=== PATIENT | female | born 1945 | race Two or more races ===

== ENCOUNTER 2019-09-08 12:46 | Observation (INO) | payer SELFPAY ==
--- NOTE | 2019-09-08 13:15 | PDOC ---
History of Present Illness - General Chief Complaint: Chest Pain Stated Complaint: PALPITATION,CHEST PAIN Time Seen by Provider: 09/08/19 12:54 History Source: Patient, Family - History of Present Illness Initial Comments: 09/08/19 13:11 HPI 74 YOF h/o HTN, arthritis presenting with palpitations, chest pain and SOB x 1 day. described as localized to left chest, occasionally radiates to shoulder, nonexertional. has had episodes of chest pain intermittently x several months, worse yesterday. +nonproductive cough, mild congestion - which she attributed to cold sx x 8 days. she also endorses chronic leg/knee pain, worse on LLE, which she has attributed to arthritis. she also noted some hematuria with urination this week , stayed hydrated. 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 and referred to the ED for further evaluation for r/o ACS/typical chest pain. received ASA 325mg x1 RESEARCH TEST ENGINE EVALUATOR she is currently visiting family here from [facility], arrived here about 1 week ago.. Denies fever, chills, chest pain, SOB, palpitation, dizziness, weakness, N, V, D , abdominal pain, bladder and bowel problems, focal weakness/paresthesias, leg swelling/pain, rash. No new changes in medications. Allergies: None Past Medical History/PSH: as above Social history: Lives with family. No tobacco, ETOH or drug use. Meds: as documented in EMR Family history: +father with HTN PMD: in [facility] Review of systems Constitutional: no fevers or chills. No weakness HEENT: +headache or dizziness. +congestion. No visual/hearing disturbances. +neck pain. CVS: +cp or no syncope. Resp: +sob. + cough. Gastrointestinal: no abdominal pain, nausea, vomiting, diarrhea. Genitourinary: no urinary sx, +hematuria. MUSCULOSKELETAL: +joint pain and no joint swelling. +neck pain. SKIN: no redness or skin changes, no discharge, no rash. No wounds. Hematologic: no easy bruising/bleeding. NEUROLOGIC: +headache, dizziness, No LOC or altered mental status. No weakness, numbness or tingling. Psych: no anxiety or depression Allergic/Immunologic: no allergies All other systems reviewed and negative, or as documented in HPI. Physical exam General: Well appearing, awake and alert, NAD. HEENT: NCAT, PERRL, EOMI, clear conjunctiva, anicteric, moist mucus membranes, clear oropharynx, no oral lesions.. Neck: neck supple, FROM, no JVD. Resp: CTAB, normal and even respirations, no respiratory distress CVS: RRR, no murmurs, 2+ peripheral pulses throughout, no peripheral edema Abdomen: soft, NTND, no rebound or guarding. Back: nontender, normal inspection and ROM MSK: no edema, JEAN x4, ROM intact. No clubbing or cyanosis. normal bulk and tone. Extremities: no calf tenderness Neuro: alert, oriented appropriately; no focal neurologic deficits Psych: Calm and cooperative Skin: warm and well perfused, cap refill <2 sec, normal color, no rash or skin discoloration. 09/08/19 13:14 09/08/19 13:30 09/08/19 14:25 Past History - Past Medical History Allergies/Adverse Reactions: Allergies Allergy/AdvReac Type Severity Reaction Status Date / Time No Known Allergies Allergy Verified 09/08/19 12:50 Home Medications: Ambulatory Orders Furosemide [Lasix] 0 mg PO ASDIR 09/08/19 Irbesartan/Hydrochlorothiazide [Avalide 150-12.5 mg Tablet] 0 each PO ASDIR Cardiac Disorders: Yes (palpitations) COPD: No HTN: Yes - Psycho Social/Smoking Cessation Hx Smoking History: Never smoked Hx Alcohol Use: No Drug/Substance Use Hx: No *Physical Exam - Vital Signs Last Vital Signs Temp Pulse Resp BP Pulse Ox 98.2 F 77 19 135/72 98 09/08/19 12:49 09/08/19 12:49 09/08/19 12:49 09/08/19 12:49 09/08/19 12:49 Heart Score/ECG Review - History History: Slightly suspicious - Electrocardiogram EKG: Non specific repolarization disturbance - Age Age: >/= 65 - Risk Factors Risk Factors Heart Score: Yes Hx Hypertension Based on the list above the patient has:: 1-2 risk factors - Troponin Troponin: </= normal limit - Score Heart Score - Total: 4 #1 ECG reviewed & interpreted by me at: 12:55 General ECG Interpretation: Sinus Rhythm, Normal Rate, Normal Intervals Compared to previous ECG there are: Previous ECG unavail 09/08/19 13:12 EKG normal sinus rhythm at 73 bpm, 1st degree HB with MN prolongation >200 ms, narrow QRS, ST and T wave segments and morphology normal. Nonspecific T wave abnormalities ED Treatment Course - LABORATORY CBC & Chemistry Diagram: 09/08/19 13:05 09/08/19 13:05 - ADDITIONAL ORDERS Additional order review: Laboratory Results 09/08/19 09/08/19 09/08/19 13:34 13:05 13:05 PT with INR INR PTT (Actin FS) Sodium Potassium Chloride Carbon Dioxide Anion Gap BUN Creatinine Est GFR (CKD-EPI)AfAm Est GFR (CKD-EPI)NonAf Random Glucose Calcium Magnesium Total Bilirubin AST ALT Alkaline Phosphatase Creatine Kinase 84 Troponin I < 0.03 Total Protein Albumin Urine Color Yellow Urine Appearance Clear Urine pH 5.5 Urine Protein Negative Urine Glucose (UA) Negative Urine Ketones Negative Urine Blood Negative Urine Nitrite Negative Urine Bilirubin Negative Urine Urobilinogen 0.2 Ur Leukocyte Esterase Trace H Urine RBC 0-2 Urine WBC 10-20 Ur Transition Epith Cell Moderate Urine Bacteria Few 09/08/19 09/08/19 13:05 13:05 PT with INR 12.8 INR 1.15 PTT (Actin FS) 26.0 Sodium 140 Potassium 4.1 Chloride 100 Carbon Dioxide 30 Anion Gap 10 BUN 22.0 H Creatinine 0.8 Est GFR (CKD-EPI)AfAm 83.00 Est GFR (CKD-EPI)NonAf 71.61 Random Glucose 124 H Calcium 8.9 Magnesium 1.5 L Total Bilirubin 0.6 AST 20 ALT 11 L Alkaline Phosphatase 70 Creatine Kinase Troponin I Total Protein 7.5 Albumin 3.8 Urine Color Urine Appearance Urine pH Urine Protein Urine Glucose (UA) Urine Ketones Urine Blood Urine Nitrite Urine Bilirubin Urine Urobilinogen Ur Leukocyte Esterase Urine RBC Urine WBC Ur Transition Epith Cell Urine Bacteria 09/08/19 13:05 RBC 3.83 MCV 91.1 MCHC 32.5 RDW 13.2 MPV 11.3 H Neutrophils % 46.0 Lymphocytes % 40.7 H Monocytes % 9.1 Eosinophils % 3.4 Basophils % 0.8 - RADIOLOGY Radiology Studies Ordered: Category Date Time Status CHEST CTA [CT] Stat CT Scan 09/08/19 13:09 Completed CHEST PA & LAT [RAD] Stat Radiology 09/08/19 12:54 Completed - Medications Given in the ED: ED Medications Discontinued Medications Generic Name Dose Route Start Last Admin Trade Name Sukh PRN Reason Stop Dose Admin Ceftriaxone Sodium 1,000 mg/ 50 mls @ 100 mls/hr 09/08/19 14:25 09/08/19 15: 30 Dextrose IVPB 09/08/19 14:54 100 mls/hr ONCE ONE Administration Magnesium Sulfate 2 gm 09/08/19 13:59 09/08/19 14:25 Magnesium Sulfate IVPB 09/08/19 14:00 2 gm ONCE ONE Administration Medical Decision Making - Medical Decision Making 09/08/19 13:13 Vital Signs Temp Pulse Resp BP Pulse Ox 98.2 F 77 19 135/72 98 09/08/19 12:49 09/08/19 12:49 09/08/19 12:49 09/08/19 12:49 09/08/19 12:49 DDx chest pain: ACS, coronary vasospasm, NSTEMI, arrhythmia, unstable angina, PE , dissection, PUD, esophageal spasm, GERD, gastritis, costochondritis, pneumonia , pleurisy, pericarditis/myocarditis. dehydration, electrolyte/metabolic derangements. Chest pain HEART score 4 which denotes Moderate risk and probability for ACS, risk of 14-16% of MACE at 4-6 wks Given risk factors including comorbidities, gender, family and tobacco use. UA +leuk esterase (trace) and WBCs>10, with few bacteria. eleonora with UTI, treat with IV ceftriaxone labs and lytes unremarkable. neg trop, reassuring ASA already received RESEARCH TEST ENGINE EVALUATOR. cxr with cardiomegaly, no effusion/edema or mass/infiltrate CTA neg for central PE per hospitalist, send off dimer and LE duplex given sx and recent travel. Cards cs with lead web application developer physician, Dr Urbina, routine call placed. Plan for admit observation, possible Stress testing, echo, duplex to r/o ischemia, serial trops and EKG/tele monitoring. ASA administered, pain controlled, discussion with patient and family at bedside, made aware of impression and plan, questions answered. admit to Dr Heart, s/o case and plan. 09/08/19 14:04 09/08/19 14:26 09/08/19 14:45 09/08/19 14:45 09/08/19 15:25 Discharge - Discharge Information Problems reviewed: Yes Clinical Impression/Diagnosis: Palpitations, UTI (urinary tract infection) Chest pain Qualifiers: Chest pain type: unspecified Qualified Code(s): R07.9 - Chest pain, unspecified Condition: Stable - Admission Yes - Follow up/Referral - Patient Discharge Instructions - Post Discharge Activity
[2019-09-08 13:22] VITALS: BMI 29.2
[2019-09-08 13:46] LABS: BASO % 0.8 % (0-2.0); EOS % 3.4 % (0-4.5); HEMATOCRIT 34.9 % (32.4-45.2); HEMOGLOBIN 11.3 GM/dl (10.7-15.3); INR 1.15 (0.82-1.09); LYMPH % 40.7 % (8-40); MCH 29.6 pg (25.7-33.7); MCHC 32.5 g/dl (32.0-36.0); MEAN CELL VOLUME 91.1 fl (80-96); MEAN PLT VOLUME 11.3 fl (7.5-11.1); MONO % 9.1 % (3.8-10.2); PLATELET COUNT 176 K/MM3 (134-434); PROTHROMBIN TIME (PATIENT) 12.8 SEC (10.2-13.0); RBC 3.83 M/mm3 (3.60-5.2); RDW 13.2 % (11.6-15.6); WHITE BLOOD COUNT 5.2 K/mm3 (4.0-10.8)
[2019-09-08 13:47] LABS: ALBUMIN 3.8 g/dl (3.4-5.0); BILIRUBIN,TOTAL 0.6 mg/dl (0.2-1); CALCIUM 8.9 mg/dl (8.5-10); CREATININE 0.8 mg/dl (0.55-1.3); MAGNESIUM 1.5 mg/dL (1.8-2.4); POTASSIUM 4.1 mmol/L (3.5-5.1); TOT PROT 7.5 g/dl (6.4-8.2)
[2019-09-08] MEDS ORDERED: MAGNESIUM SULF 50% (8.12 MEQ/2 ML-1 GM VIAL) IVPB ONE (13:59)
[2019-09-08] MEDS ORDERED: MAGNESIUM 1GM/D5W - 2 GM/200 ML IVPB IVPB ONE (14:13)
[2019-09-08 14:23] LABS: EPITHELIAL CELLS MODERATE /hpf
[2019-09-08] MEDS ORDERED: CEFTRIAXONE 1,000 MG in DEXTROSE 5%-WATER - 50 ML IVPB ONE (14:25)
[2019-09-08] MEDS ORDERED: cefTRIAXone SODIUM 1 GM VIAL ONE (14:42)
--- NOTE | 2019-09-08 14:54 | HP ---
Admitting History and Physical - Admission Chief Complaint: chest pain History of Present Illness: 74 Yrs iolD f a visitor from [facility] came 8 days ago today visited Urgent care with chest pain (on going, intermittent, radiating to shoulder, 5/10) , palpitation arthritis presenting with palpitations, and SOB for 1 day , EKG was performed and patient is transferred to Ed for evaluation, considering intermediate p chest pain and SOB x 1 day. described as localized to left chest , occasionally radiates to shoulder, nonexertional. has had episodes of chest pain iHeart score is being admitted for further evaluation of sOB with palpitation and Chest Pain. . History Source: Patient - Past Medical History Cardiovascular: Yes: HTN - Smoking History Smoking history: Never smoked - Alcohol/Substance Use Hx Alcohol Use: No - Social History History of Recent Travel: Yes (8 days ago from [facility]) Home Medications - Allergies Allergies/Adverse Reactions: Allergies Allergy/AdvReac Type Severity Reaction Status Date / Time No Known Allergies Allergy Verified 09/08/19 12:50 - Home Medications Home Medications: Ambulatory Orders Furosemide [Lasix] 0 mg PO ASDIR 09/08/19 Irbesartan/Hydrochlorothiazide [Avalide 150-12.5 mg Tablet] 0 each PO ASDIR Family Medical History Family History: Unremarkable Review of Systems - Review of Systems Constitutional: denies: Chills, Diaphoresis, Fever Eyes: denies: Blind Spots, Blurred Vision, Double Vision HENT: denies: Difficult Swallowing, Ear Discharge, Ear Pain Neck: denies: Decreased ROM, Lumps, Pain on Movement, Stiffness Cardiovascular: reports: Chest Pain, Palpitations. denies: Edema, Shortness of Breath Respiratory: reports: Cough. denies: Exercise Intolerance, Hemoptysis, Orthopnea Gastrointestinal: denies: Abdominal Pain, Bloating, Constipation, Diarrhea Genitourinary: denies: Burning, Discharge, Dysuria Musculoskeletal: reports: Crepitus (Left knee). denies: Back Pain, Decreased ROM Neurological: denies: Change in LOC, Change in Speech, Confusion, Dizziness Endocrine: denies: Excessive Sweating, Flushing, Increased Hunger Hematology/Lymphatic: denies: Easily Bruised, Excessive Bleeding, Swollen Glands Psychiatric: denies: Altered Sleep Pattern Physical Examination Vital Signs: Vital Signs Temperature 98.2 F 09/08/19 12:49 Pulse Rate 77 09/08/19 12:49 Respiratory Rate 19 09/08/19 12:49 Blood Pressure 135/72 09/08/19 12:49 O2 Sat by Pulse Oximetry (%) 98 09/08/19 12:49 Findings/Remarks: Elderly F not in distress HEENT: Mm moist, no anemia NECK; No JVD No Bruit CHEST: mild tenderness minimal basal crepts CVS: s1S2 R ABD: Non tender Bs + EXT: Trace edema DEBATE DIRECTOR: AOX3 non focal Constitutional: Yes: Well Nourished Labs: CBC, BMP 09/08/19 13:05 09/08/19 13:05 Imaging - Results Chest X-ray: Report Reviewed (Cardiomegaly) Cat Scan: Report Reviewed (Chest : No central PE) EKG: Report Reviewed ([address] T chnages QTC 445) Problem List - Problems (1) Chest pain Assessment/Plan: Atypical recent travelling history, EKG unremarkable, ECHO< Trop I -ve admit Tele for Obs, serial Trop I, Lipid, TSH, HBA1c cardiology consult cont ASA will add statin if elevated LDL cont Lasix switch to Losartan 50 mg optimize as needed, CTA is performed in Ed to r/O PE that shows no central PE poor peripheral opacification. Problems reviewed: Yes Code(s): R07.9 - CHEST PAIN, UNSPECIFIED Qualifiers: Chest pain type: unspecified Qualified Code(s): R07.9 - Chest pain, unspecified (2) Palpitations Assessment/Plan: Will observe on tele to r/O arrythmia Code(s): R00.2 - PALPITATIONS (3) UTI (urinary tract infection) Assessment/Plan: + UA TWBC normal afebrile recived Ceftriaxone 1 gm cont same F/U Culture. Code(s): N39.0 - URINARY TRACT INFECTION, SITE NOT SPECIFIED (4) HTN (hypertension) Assessment/Plan: Switch to Losartan 50 mg daily and optimize Code(s): I10 - ESSENTIAL (PRIMARY) HYPERTENSION (5) Hypomagnesemia Assessment/Plan: Repleted F/U Mag level Code(s): E83.42 - HYPOMAGNESEMIA
[2019-09-08 16:36] LABS: CHOLESTEROL 272 mg/dl (50-200); HDL CHOLESTEROL 59 mg/dl (40-60); TRIGLYCERIDES 68 mg/dl (0-150)
[2019-09-08 16:42] LABS: LDL CHOLESTEROL (ONLY SJRH) 199 mg/dL (5-100)
[2019-09-09 08:19] LABS: CALCIUM 8.7 mg/dl (8.5-10); CREATININE 0.8 mg/dl (0.55-1.3); MAGNESIUM 1.8 mg/dL (1.8-2.4); POTASSIUM 3.9 mmol/L (3.5-5.1)
[2019-09-09 08:26] LABS: BASO % 0.4 % (0-2.0); EOS % 4.5 % (0-4.5); HEMOGLOBIN 10.3 GM/dl (10.7-15.3); MCH 30.3 pg (25.7-33.7); MCHC 33.3 g/dl (32.0-36.0); MEAN CELL VOLUME 90.8 fl (80-96); MEAN PLT VOLUME 11.1 fl (7.5-11.1); MONO % 7.6 % (3.8-10.2); NEUT % 46.5 % (42.8-82.8); PLATELET COUNT 166 K/MM3 (134-434); RBC 3.41 M/mm3 (3.60-5.2); WHITE BLOOD COUNT 4.4 K/mm3 (4.0-10.8)
--- NOTE | 2019-09-09 09:58 | PN ---
Progress Note, Physician Chief Complaint: No new complaints History of Present Illness: 4 Yrs iolD f a visitor from [facility] came 8 days ago today visited Urgent care with chest pain (on going, intermittent, radiating to shoulder, 5/10) , palpitation arthritis presenting with palpitations, and SOB for 1 day , EKG was performed and patient is transferred to Ed for evaluation, considering intermediate p chest pain and SOB x 1 day. described as localized to left chest , CTA -ve for central PE, LE Doppler -ve for DVT, elevated D dimmers 3770, BNP normal mild anemia. - Current Medication List Current Medications: Active Medications Aspirin (Asa -) 81 mg PO DAILY BETH Atorvastatin Calcium (Lipitor -) 40 mg PO HS BETH Enoxaparin Sodium (Lovenox -) 40 mg SQ DAILY BETH Furosemide (Lasix -) 20 mg PO DAILY BETH Ceftriaxone Sodium (Ceftriaxone 1 Gm-D5w Bag) 50 mls @ 100 mls/hr IVPB DAILY BETH Losartan Potassium (Cozaar -) 50 mg PO DAILY BETH - Objective Vital Signs: Vital Signs Temperature 98.1 F 09/09/19 06:00 Pulse Rate 88 09/09/19 06:00 Respiratory Rate 18 09/09/19 06:00 Blood Pressure 153/66 09/09/19 06:00 O2 Sat by Pulse Oximetry (%) 94 L 09/09/19 08:43 Elderly F not in distress HEENT: Mm moist, no anemia NECK; No JVD No Bruit CHEST: mild tenderness CTA B/L CVS: s1S2 R ABD: Non tender Bs + EXT: Trace edema HAND SHAPER: AOX3 non focal Labs: CBC, BMP 09/09/19 07:20 09/09/19 07:20 INR, PTT INR 1.15 (0.82-1.09) 09/08/19 13:05 D Dimmers: 3770 - ....Imaging Cat Scan: Report Reviewed (CTA Chest no central PE) Ultrasound: Report Reviewed (LE Doppler -ve for DVt) EKG: Report Reviewed (NSr no acute St t changes) Problem List - Problems (1) Chest pain Assessment/Plan: Atypical recent travelling history, EKG unremarkable, normal serial CE, ECHO pending on ASA for Statin , remained CP free, CTA -ve for central PE , LE Doppler -ve for DVT significantly elevated D Dimmers: 3770 will F/U cardiology input andhematology input.. Code(s): R07.9 - CHEST PAIN, UNSPECIFIED Qualifiers: Chest pain type: unspecified Qualified Code(s): R07.9 - Chest pain, unspecified (2) Palpitations Assessment/Plan: Will observe on tele to shows no arrhythmia Code(s): R00.2 - PALPITATIONS (3) UTI (urinary tract infection) Assessment/Plan: + UA TWBC normal afebrile received Ceftriaxone 1 gm cont same F/U Culture. Code(s): N39.0 - URINARY TRACT INFECTION, SITE NOT SPECIFIED (4) HTN (hypertension) Assessment/Plan: Losartan 50 mg daily and optimize Problems reviewed: Yes Code(s): I10 - ESSENTIAL (PRIMARY) HYPERTENSION (5) Hypomagnesemia Assessment/Plan: Repleted F/U Mag level 1.8 will infuse Mag so4 1 gm IVSS Problems reviewed: Yes Code(s): E83.42 - HYPOMAGNESEMIA (6) Hypercholesteremia Assessment/Plan: start on Lipitor 40 mg daily Problems reviewed: Yes Code(s): E78.00 - PURE HYPERCHOLESTEROLEMIA, UNSPECIFIED (7) Elevated d-dimer Assessment/Plan: Significantly elevated D Dimmers LE Doppler -ve for DVT, CTA chest poor peripheral opacification, LE Doppler -ve for DVt, will consult hematology consult if need to Rpt CT chest or additional w/u . Problems reviewed: Yes Code(s): R79.89 - OTHER SPECIFIED ABNORMAL FINDINGS OF BLOOD CHEMISTRY
[2019-09-09] MEDS: ENOXAPARIN NA (PORCINE) 40 MG/0.4 ML DISP.SYRIN SQ SCH (11:03)
[2019-09-09] MEDS: CEFTRIAXONE 1 G/50 ML PREMIX 50 ML IVPB SCH (11:03)
[2019-09-09] MEDS: LOSARTAN POTASSIUM 50 MG TABLET (FP) PO SCH (11:03)
[2019-09-09] MEDS: ASPIRIN 81 MG CHEWABLE TABLETS PO SCH (11:03)
[2019-09-09] MEDS: FUROSEMIDE 20 MG TABLET (FP) PO SCH (11:03)
--- NOTE | 2019-09-09 12:23 | EKG ---
Test Reason : Blood Pressure : / mmHG Vent. Rate : 073 BPM Atrial Rate : 073 BPM P-R Int : 218 ms QRS Dur : 110 ms QT Int : 404 ms P-R-T Axes : 077 043 049 degrees QTc Int : 445 ms SINUS RHYTHM WITH 1ST DEGREE A-V BLOCK OTHERWISE NORMAL ECG NO PREVIOUS ECGS AVAILABLE Confirmed by BOBBY MARIE, MARY ([id number]) on 09/09/2019 12:23:34 PM Referred By: Confirmed By:MARY ROSALES MD
--- NOTE | 2019-09-09 13:50 | ECHO ---
Name: BETTYE VILLANUEVA ADRIANO ELEVINI Exam:Adult Echocardiogram Study Date: 09/09/2019 11:01 AM Age: 74 yrs Reason For Study: Chest pain Height: 62 in Weight: 161 lb BSA: 1.7 m2 MMode/2D Measurements & Calculations IVSd: 0.93 cm Ao root diam: 2.5 cm LVIDd: 2.8 cm LA dimension: 3.4 cm LVIDs: 3.2 cm LVPWd: 2.8 cm EDV(Teich): 30.4 ml LVOT diam: 2.0 cm ESV(Teich): 40.1 ml Doppler Measurements & Calculations MV E max bindu: 54.6 cm/sec MV A max bindu: 78.0 cm/sec MV dec slope: 444.4 cm/sec2 MV E/A: 0.70 Ao V2 max: 103.4 cm/sec LV V1 max P.6 mmHg Ao max P.3 mmHg LV V1 max: 62.4 cm/sec KIERAN(V,D): 1.9 cm2 MR max bindu: 291.8 cm/sec TR max bindu: 238.8 cm/sec MR max P.1 mmHg TR max P.8 mmHg PA V2 max: 77.2 cm/sec PI end-d bindu: 104.7 cm/sec PA max P.4 mmHg Procedure A complete two-dimensional transthoracic echocardiogram was performed (2D, M-mode, Doppler and color flow Doppler). The study was technically difficult with many images being suboptimal in quality. Left Ventricle The left ventricular size, thickness and function are normal. The left ventricular ejection fraction is normal. Ejection Fraction = 55-60%. No regional wall motion abnormalities noted. Right Ventricle The right ventricle is not well visualized. Atria The left atrial size is normal. Right atrium not well visualized. Mitral Valve There is no mitral regurgitation noted. Tricuspid Valve There is trace tricuspid regurgitation. Right ventricular systolic pressure is normal. Aortic Valve No hemodynamically significant valvular aortic stenosis. No aortic regurgitation is present. Pulmonic Valve The pulmonic valve is not well visualized. Great Vessels The aortic root is normal size. Pericardium/Pleura There is no pericardial effusion. Interpretation Summary The study was technically difficult with many images being suboptimal in quality. The left ventricular size, thickness and function are normal The right ventricle is not well visualized. There is trace tricuspid regurgitation. MD Travis Nagel 09/09/2019 01:49 PM
--- NOTE | 2019-09-09 14:11 | CON.CARD ---
Consult Consult Specialty:: Cardiology Referred by:: Medicine Reason for Consultation:: chest pain - History of Present Illness Chief Complaint: chest pain History of Present Illness: 74F h/o HTN p/w palps, shortness of breath, chest pain. Came to visit from [facility] about 10 days ago, dealing with a lot of family stress. has had pain in her chest intermittently and racing heart since then, BP was also high but don' t remember how high it was so came to ER. Currently no chest pain, palps, dizziness, dyspnea, feeling better. No prior cardiac history, not sure if she had testing before. History taken with motor vehicle parts interpreter via phone. - History Source History Provided By: Patient, Family Member - Past Medical History Cardio/Vascular: Yes: HTN ...: No - Alcohol/Substance Use Hx Alcohol Use: No - Smoking History Smoking history: Former smoker Have you smoked in the past 12 months: No Aproximately how many cigarettes per day: 20 If you are a former smoker, when did you quit?: 200+ - Social History History of Recent Travel: Yes (8 days ago from [facility]) Home Medications - Allergies Allergies/Adverse Reactions: Allergies Allergy/AdvReac Type Severity Reaction Status Date / Time No Known Allergies Allergy Verified 09/08/19 12:50 - Home Medications Home Medications: Ambulatory Orders Furosemide [Lasix] 40 mg PO DAILY 09/08/19 Irbesartan/Hydrochlorothiazide [Avalide 150-12.5 mg Tablet] 150 mg PO DAILY Family Medical History Family History: Unremarkable Review of Systems - Review of Systems Constitutional: reports: No Symptoms Eyes: reports: No Symptoms HENT: reports: No Symptoms Neck: reports: No Symptoms Cardiovascular: reports: Chest Pain, Palpitations, Shortness of Breath Respiratory: reports: No Symptoms Gastrointestinal: reports: No Symptoms Genitourinary: reports: No Symptoms Musculoskeletal: reports: No Symptoms Integumentary: reports: No Symptoms Neurological: reports: No Symptoms Endocrine: reports: No Symptoms Hematology/Lymphatic: reports: No Symptoms Psychiatric: reports: No Symptoms Vital Signs: Vital Signs Temperature 97.6 F 09/09/19 10:04 Pulse Rate 73 09/09/19 10:04 Respiratory Rate 16 09/09/19 10:04 Blood Pressure 116/51 L 09/09/19 10:04 O2 Sat by Pulse Oximetry (%) 94 L 09/09/19 08:43 Constitutional: Yes: No Distress, Calm Eyes: Yes: Conjunctiva Clear, EOM Intact HENT: Yes: Atraumatic, Normocephalic Neck: Yes: Supple, Trachea Midline Respiratory: Yes: Regular, CTA Bilaterally Gastrointestinal: Yes: Normal Bowel Sounds, Soft Cardiovascular: Yes: Regular Rate and Rhythm JVD: No Heart Sounds: Yes: S1, S2 Extremities: No: Cold Edema: No Integumentary: No: Jaundice Neurological: Yes: Alert, Oriented Psychiatric: No: Agitated - Other Data Labs, Other Data: CBC, BMP 09/09/19 07:20 09/09/19 07:20 INR, PTT INR 1.15 (0.82-1.09) 09/08/19 13:05 Troponin, BNP 09/08/19 09/09/19 13:05 07:20 Troponin I < 0.03 B-Natriuretic Peptide 67.4 Troponin, BNP 09/08/19 09/09/19 13:05 07:20 Troponin I < 0.03 B-Natriuretic Peptide 67.4 Assessment/Plan EKG: sinus, first deg AVB, no ischemic changes echo 08/2019: tds, nl LV function, RV not well visualized tele: sinus CTA no large central PE chest pain, palps, dyspnea - echo unremarkable - trop neg x 2, EKG no ischemic changes - unlikely ACS - given risk factors will evaluate with mibi, if benign findings no further inpatient testing HLD - cont statin HTN - cont current meds UTI - manage per primary
--- NOTE | 2019-09-09 16:45 | CONSULT ---
Consult Consult Specialty:: heme Reason for Consultation:: elev d dimer - History of Present Illness Chief Complaint: chest pain History of Present Illness: 74 yof w h/o arthritis, htn arrived from [facility] 8d ago and p/w cp she is a poor historian but describes a subacute L ACW occas pain. denies pleuritic component or sob. She occas awakens w sob of brief duration. intermittent leg swelling. reports having pulm eval in [facility] and told of shadow on lung here cta shows no central PE, there is very mild dec O2 sat at 94, LE duplex neg d dimer sent and elev - History Source History Provided By: Patient, Medical Record Limitations to Obtaining History: Poor Historian (collision estimator used) - Past Medical History Cardio/Vascular: Yes: HTN ...: No - Alcohol/Substance Use Hx Alcohol Use: No - Smoking History Smoking history: Former smoker Have you smoked in the past 12 months: No Aproximately how many cigarettes per day: 20 If you are a former smoker, when did you quit?: 200+ - Social History History of Recent Travel: Yes (8 days ago from [facility]) Home Medications - Allergies Allergies/Adverse Reactions: Allergies Allergy/AdvReac Type Severity Reaction Status Date / Time No Known Allergies Allergy Verified 09/08/19 12:50 - Home Medications Home Medications: Ambulatory Orders Furosemide [Lasix] 40 mg PO DAILY 09/08/19 Irbesartan/Hydrochlorothiazide [Avalide 150-12.5 mg Tablet] 150 mg PO DAILY Physical Exam Vital Signs: Vital Signs Temperature 97.8 F 09/09/19 14:00 Pulse Rate 76 09/09/19 14:00 Respiratory Rate 19 09/09/19 14:00 Blood Pressure 111/52 L 09/09/19 14:00 O2 Sat by Pulse Oximetry (%) 95 09/09/19 14:00 Constitutional: Yes: Well Nourished, No Distress, Other (appears comfortable) Eyes: Yes: WNL Neck: Yes: Supple Cardiovascular: Yes: Regular Rate and Rhythm Respiratory: Yes: CTA Bilaterally Gastrointestinal: Yes: Normal Bowel Sounds, Soft Musculoskeletal: Yes: Other (focal tenderness L superior costochondral region) Extremities: Yes: WNL Edema: Yes (very trace R>l) Psychiatric: Yes: Other (mildly anxious) Labs: CBC, BMP 09/09/19 07:20 09/09/19 07:20 Assessment/Plan reproducible L ACW pain very mild hypoxia, no central PE, elev d dimer of unclear etiol pt/ptt is nl the d dimer is a non-specific finding would repeat. if remains elev or if any other concerning signs of PE would repeat cta in this pt who recently took long flight d/w team
[2019-09-09] MEDS: ATORVASTATIN CA 40 MG TABLET (FP) PO SCH (21:07)
--- NOTE | 2019-09-10 08:05 | PN ---
Physical Exam: SUBJECTIVE: Patient seen and examined at the bedside. no further chest pain, no nausea or vomiting. OBJECTIVE: stress test negative d dimer 1976, down from 3700, however repeat now 3500. initial cta negative for pe, however, d dimer remains elevated. reported by primary RN that patient had an episode of vtach on monitor this evening. continue to monitor on tele. Patient is a 74 yr old female from [facility] came 8 days ago today visited Urgent care with chest pain (on going, intermittent, radiating to shoulder, 5/10) , palpitation arthritis presenting with palpitations, and SOB for 1 day , EKG was performed and patient is transferred to Ed for evaluation. Vital Signs Period Temp Pulse Resp BP Sys/Neff Pulse Ox Last 24 Hr 97.6 F-98.7 F 73-85 16-19 110-122/41-56 94-96 GENERAL: The patient is awake, alert, and fully oriented, in no acute distress. HEAD: Normal with no signs of trauma. EYES: PERRL, extraocular movements intact, sclera anicteric, conjunctiva clear. No ptosis. ENT: Ears normal, nares patent, oropharynx clear without exudates, moist mucous membranes. NECK: Trachea midline, full range of motion, supple. LUNGS: Breath sounds equal, clear to auscultation bilaterally HEART: Regular rate and rhythm ABDOMEN: Soft, nontender, nondistended, normoactive bowel sounds, no guarding, no rebound, no hepatosplenomegaly, no masses. EXTREMITIES: no edema. NEUROLOGICAL: Normal speech, gait not observed. PSYCH: Normal mood, normal affect. SKIN: Warm, dry, normal turgor, no rashes or lesions noted Laboratory Results - last 24 hr 09/09/19 09/09/19 09/09/19 07:10 07:20 07:20 WBC 4.4 RBC 3.41 L Hgb 10.3 L Hct 31.0 L MCV 90.8 MCH 30.3 MCHC 33.3 RDW 13.0 Plt Count 166 MPV 11.1 Absolute Neuts (auto) 2.1 Neutrophils % 46.5 Lymphocytes % 41.0 H Monocytes % 7.6 Eosinophils % 4.5 Basophils % 0.4 D-Dimer Sodium 138 Potassium 3.9 Chloride 99 Carbon Dioxide 30 Anion Gap 9 BUN 17.0 Creatinine 0.8 Est GFR (CKD-EPI)AfAm 83.00 Est GFR (CKD-EPI)NonAf 71.61 Random Glucose 146 H Hemoglobin A1c % Calcium 8.7 Magnesium 1.8 LD Total 115 09/09/19 09/09/19 07:20 12:45 WBC RBC Hgb Hct MCV MCH MCHC RDW Plt Count MPV Absolute Neuts (auto) Neutrophils % Lymphocytes % Monocytes % Eosinophils % Basophils % D-Dimer 1977 H Sodium Potassium Chloride Carbon Dioxide Anion Gap BUN Creatinine Est GFR (CKD-EPI)AfAm Est GFR (CKD-EPI)NonAf Random Glucose Hemoglobin A1c % 7.3 H Calcium Magnesium LD Total Active Medications Generic Name Dose Route Start Last Admin Trade Name Freq PRN Reason Stop Dose Admin Aspirin 81 mg 09/09/19 10:00 09/09/19 11:03 Asa - PO 81 mg DAILY BETH Administration Atorvastatin Calcium 40 mg 09/09/19 22:00 09/09/19 21:07 Lipitor - PO 40 mg HS BETH Administration Enoxaparin Sodium 40 mg 09/09/19 10:00 09/09/19 11:03 Lovenox - SQ 40 mg DAILY BETH Administration Furosemide 20 mg 09/09/19 10:00 09/09/19 11:03 Lasix - PO 20 mg DAILY BETH Administration Ceftriaxone Sodium 50 mls @ 100 mls/hr 09/09/19 10:00 09/09/19 11:03 Ceftriaxone 1 Gm-D5w Bag IVPB 100 mls/hr DAILY BETH Administration Losartan Potassium 50 mg 09/09/19 10:00 09/09/19 11:03 Cozaar - PO 50 mg DAILY BETH Administration ASSESSMENT/PLAN: Problem List - Problems (1) Chest pain Assessment/Plan: chest pain resolved, negative stress test. Code(s): R07.9 - CHEST PAIN, UNSPECIFIED Qualifiers: Chest pain type: unspecified Qualified Code(s): R07.9 - Chest pain, unspecified (2) Elevated d-dimer Assessment/Plan: d dimer repeated and elevated at 3500. patient is asymptomatic, may need repeat CTA to rule out PE. initial chest cta negative. but had recent travel to [facility]. had a run of v tach today per RN. continue to monitor on tele. Code(s): R79.89 - OTHER SPECIFIED ABNORMAL FINDINGS OF BLOOD CHEMISTRY (3) HTN (hypertension) Assessment/Plan: controlled. Code(s): I10 - ESSENTIAL (PRIMARY) HYPERTENSION (4) Hypercholesteremia Assessment/Plan: on lipitor Code(s): E78.00 - PURE HYPERCHOLESTEROLEMIA, UNSPECIFIED (5) Hypomagnesemia Assessment/Plan: daily labs Code(s): E83.42 - HYPOMAGNESEMIA (6) Palpitations Assessment/Plan: on telemonitor. reported to have vtach today, vitals stable. Code(s): R00.2 - PALPITATIONS (7) UTI (urinary tract infection) Assessment/Plan: on ceftriaxone. Code(s): N39.0 - URINARY TRACT INFECTION, SITE NOT SPECIFIED Visit type - Emergency Visit Emergency Visit: Yes ED Registration Date: 09/08/19 Care time: The patient presented to the Emergency Department on the above date and was hospitalized for further evaluation of their emergent condition. - New Patient This patient is new to me today: Yes Date on this admission: 09/10/19 - Critical Care Critical Care patient: No - Discharge Referral Referred to [facility] Med P.C.: No
[2019-09-10] MEDS: CEFTRIAXONE 1 G/50 ML PREMIX 50 ML IVPB SCH (09:00)
[2019-09-10] MEDS: ASPIRIN 81 MG CHEWABLE TABLETS PO SCH (09:00)
[2019-09-10] MEDS ORDERED: REGADENOSON 0.4 MG/5 ML PRE-FILLED SYRINGE IVPUSH ONE ×3 (09:00→12:30)
[2019-09-10] MEDS: ENOXAPARIN NA (PORCINE) 40 MG/0.4 ML DISP.SYRIN SQ SCH (09:00)
[2019-09-10] MEDS: FUROSEMIDE 20 MG TABLET (FP) PO SCH (09:00)
[2019-09-10] MEDS: LOSARTAN POTASSIUM 50 MG TABLET (FP) PO SCH (09:34)
--- NOTE | 2019-09-10 17:05 | PN ---
Progress Note (short form) - Note Progress Note: s: no cp sob palps dizzy o: Vital Signs Period Temp Pulse Resp BP Sys/Neff Pulse Ox Last 24 Hr 97.3 F-98.7 F 79-85 16-20 110-149/41-56 94-96 Constitutional: Yes: No Distress, Calm Eyes: Yes: Conjunctiva Clear Respiratory: Yes: Regular, CTA Bilaterally Gastrointestinal: Yes: Normal Bowel Sounds, Soft Cardiovascular: Yes: Regular Rate and Rhythm JVD: No Heart Sounds: Yes: S1, S2 Extremities: No: Cold Edema: No Integumentary: No: Jaundice Neurological: Yes: Alert, Oriented Psychiatric: No: Agitated Current Medications Generic Name Dose Route Start Last Admin Trade Name Freq PRN Reason Stop Dose Admin Aspirin 81 mg 09/09/19 10:00 09/10/19 09:00 Asa - PO 81 mg DAILY BETH Administration Atorvastatin Calcium 40 mg 09/09/19 22:00 09/09/19 21:07 Lipitor - PO 40 mg HS BETH Administration Enoxaparin Sodium 40 mg 09/09/19 10:00 09/10/19 09:00 Lovenox - SQ 40 mg DAILY BETH Administration Furosemide 20 mg 09/09/19 10:00 09/10/19 09:00 Lasix - PO 20 mg DAILY BETH Administration Ceftriaxone Sodium 50 mls @ 100 mls/hr 09/09/19 10:00 09/10/19 09:00 Ceftriaxone 1 Gm-D5w Bag IVPB 100 mls/hr DAILY BETH Administration Losartan Potassium 50 mg 09/09/19 10:00 09/10/19 09:34 Cozaar - PO 50 mg DAILY BETH Administration CBC, BMP 09/09/19 07:20 09/09/19 07:20 Assessment/Plan EKG: sinus, first deg AVB, no ischemic changes echo 08/2019: tds, nl LV function, RV not well visualized tele: sinus CTA no large central PE chest pain, palps, dyspnea - echo and nuclear stress test here are both unremarkable - trop neg x 2, EKG no ischemic changes - unlikely ACS HLD - cont statin HTN - cont current meds UTI - manage per primary cardiac viramontes stable for dc
[2019-09-10] MEDS ORDERED: HEPARIN NA (PORCINE) 5,000 UNITS/ML 1ML VIAL IVPUSH PRN ×2 (21:26)
[2019-09-10] MEDS ORDERED: HEPARIN SOD,PORK IN 0.45% NACL 25,000 UNITS/500 ML INFUS.BAG IVPB SCH (21:30)
[2019-09-10] MEDS: ATORVASTATIN CA 40 MG TABLET (FP) PO SCH (21:51)
[2019-09-11 08:35] LABS: BASO % 0.5 % (0-2.0); EOS % 3.9 % (0-4.5); HEMATOCRIT 32.4 % (32.4-45.2); HEMOGLOBIN 10.7 GM/dl (10.7-15.3); LYMPH % 49.5 % (8-40); MCH 30.3 pg (25.7-33.7); MCHC 32.9 g/dl (32.0-36.0); MEAN CELL VOLUME 92.1 fl (80-96); MEAN PLT VOLUME 10.7 fl (7.5-11.1); MONO % 6.2 % (3.8-10.2); NEUT % 39.9 % (42.8-82.8); PLATELET COUNT 168 K/MM3 (134-434); RBC 3.52 M/mm3 (3.60-5.2); RDW 12.7 % (11.6-15.6); WHITE BLOOD COUNT 5.3 K/mm3 (4.0-10.8)
[2019-09-11 08:51] LABS: CALCIUM 8.8 mg/dl (8.5-10); POTASSIUM 3.9 mmol/L (3.5-5.1)
[2019-09-11 09:04] LABS: ALBUMIN 3.2 g/dl (3.4-5.0); BILIRUBIN,TOTAL 0.5 mg/dl (0.2-1); CREATININE 0.9 mg/dl (0.55-1.3); TOT PROT 6.7 g/dl (6.4-8.2)
--- NOTE | 2019-09-11 09:51 | PN ---
Physical Exam: SUBJECTIVE: Patient seen and examined. Denies cp, sob, palpitations. Used building rigger phone ref #[id number]. OBJECTIVE: Vital Signs Period Temp Pulse Resp BP Sys/Neff Pulse Ox Last 24 Hr 97.3 F-98.9 F 76-85 18-20 125-165/55-64 93-95 GENERAL: The patient is awake, alert, and fully oriented, in no acute distress. HEAD: Normal with no signs of trauma. EYES: PERRL, extraocular movements intact, sclera anicteric, conjunctiva clear. No ptosis. ENT: Ears normal, nares patent, oropharynx clear without exudates, moist mucous membranes. NECK: Trachea midline, full range of motion, supple. LUNGS: Breath sounds equal, clear to auscultation bilaterally, no wheezes, no crackles, no accessory muscle use. HEART: Regular rate and rhythm, S1, S2 without murmur, rub or gallop. ABDOMEN: Soft, nontender, nondistended, normoactive bowel sounds, no guarding, no rebound, no hepatosplenomegaly, no masses. EXTREMITIES: 2+ pulses, warm, well-perfused, no edema. NEUROLOGICAL: Cranial nerves II through XII grossly intact. Normal speech, gait not observed. PSYCH: Normal mood, normal affect. SKIN: Warm, dry, normal turgor, no rashes or lesions noted Laboratory Results - last 24 hr 09/10/19 09/11/19 09/11/19 16:25 04:45 07:44 WBC 5.3 RBC 3.52 L Hgb 10.7 Hct 32.4 MCV 92.1 MCH 30.3 MCHC 32.9 RDW 12.7 Plt Count 168 MPV 10.7 Absolute Neuts (auto) 2.1 Neutrophils % 39.9 L Lymphocytes % 49.5 H Monocytes % 6.2 Eosinophils % 3.9 Basophils % 0.5 PTT (Actin FS) 36.9 H D-Dimer 3572 H Sodium Potassium Chloride Carbon Dioxide Anion Gap BUN Creatinine Est GFR (CKD-EPI)AfAm Est GFR (CKD-EPI)NonAf Random Glucose Calcium Total Bilirubin AST ALT Alkaline Phosphatase Total Protein Albumin 09/11/19 07:44 WBC RBC Hgb Hct MCV MCH MCHC RDW Plt Count MPV Absolute Neuts (auto) Neutrophils % Lymphocytes % Monocytes % Eosinophils % Basophils % PTT (Actin FS) D-Dimer Sodium 140 Potassium 3.9 Chloride 102 Carbon Dioxide 29 Anion Gap 9 BUN 17.0 Creatinine 0.9 Est GFR (CKD-EPI)AfAm 71.98 Est GFR (CKD-EPI)NonAf 62.11 Random Glucose 146 H Calcium 8.8 Total Bilirubin 0.5 AST 17 ALT 10 L Alkaline Phosphatase 57 D Total Protein 6.7 Albumin 3.2 L Active Medications Generic Name Dose Route Start Last Admin Trade Name Freq PRN Reason Stop Dose Admin Aspirin 81 mg 09/09/19 10:00 09/10/19 09:00 Asa - PO 81 mg DAILY BETH Administration Atorvastatin Calcium 40 mg 09/09/19 22:00 09/10/19 21:51 Lipitor - PO 40 mg HS BETH Administration Furosemide 20 mg 09/09/19 10:00 09/10/19 09:00 Lasix - PO 20 mg DAILY BETH Administration Heparin Sodium (Porcine) 1,000 unit 09/10/19 21:26 Heparin - IVPUSH PRN PRN Heparin Heparin Sodium (Porcine) 5,000 unit 09/10/19 21:26 09/11/19 06:13 Heparin - IVPUSH 5,000 unit PRN PRN Administration Heparin Ceftriaxone Sodium 50 mls @ 100 mls/hr 09/09/19 10:00 09/10/19 09:00 Ceftriaxone 1 Gm-D5w Bag IVPB 100 mls/hr DAILY BETH Administration HEPARIN SOD,PORK IN 0.45% NACL 25,000 units in 500 mls @ 20 mls/hr 09/10/19 21 :30 09/11/19 06:12 Heparin-1/2ns 25,000 Units/500 IVPB 1,150 units/hr TITR BETH 23 mls/hr Titration Protocol 1,000 UNITS/HR Losartan Potassium 50 mg 09/09/19 10:00 09/10/19 09:34 Cozaar - PO 50 mg DAILY BETH Administration Chest X-ray: Ni acute chest pathology, CM Cat Scan: No central PE Microbiology 09/08/19 15:00 Urine Culture - Final Urine - Urine Clean Catch NO GROWTH OBTAINED ASSESSMENT/PLAN: 74 yr old female from [facility] came 8 days ago,with hx of HTN,HDL, with cp and palpitations. pt was seen at the urgent care ans sent to ER for evalaution. *Chest pain/ palpitations - Trop neg x2 - EKG: SR with first degree AVB,no ischemic changes -Echo 08/2019: tds, nl LV function, RV not well visualized -cardiology input appreciated - on tele no arrhythmias,mg/K - WNL - Nuclear stress test : No evidence of ischemia -will cont on ASA * Abnormal D- Dimer - CTA - no PE - US - DVT ruled out - seen by hematology, D- dimer is a non-specific finding would repeat. if remains elev or if any other concerning signs of PE would repeat cta in this pt who recently took long flight - pul consulted - off Heparin drip * UTI - ruled out - asymptomatic - will DC Ceftriaxone - unrie culture no growth *HTN - BP stable - will cont on Losartan, Lasix * HDL - will cont on statin - *Hypomagnesemia- resolved - Mg 1.5>1.8 - s/p replacement * VTE: on Heparin * F/E/N: Low Sodium diet Updated plan of care bharathi garza [place], lorri # [phone] Visit type - Emergency Visit Emergency Visit: Yes ED Registration Date: 09/08/19 Care time: The patient presented to the Emergency Department on the above date and was hospitalized for further evaluation of their emergent condition. - New Patient This patient is new to me today: Yes Date on this admission: 09/11/19 - Critical Care Critical Care patient: No
--- NOTE | 2019-09-11 10:28 | PN ---
Progress Note, Physician Chief Complaint: seen and examined, no CP, SOB or dizziness TELE: NSR, some mandy overnight with WENKEBACH - Current Medication List Current Medications: Active Medications Aspirin (Asa -) 81 mg PO DAILY [facility] Last Admin: 09/10/19 09:00 Dose: 81 mg Atorvastatin Calcium (Lipitor -) 40 mg PO HS [facility] Last Admin: 09/10/19 21:51 Dose: 40 mg Furosemide (Lasix -) 20 mg PO DAILY [facility] Last Admin: 09/10/19 09:00 Dose: 20 mg Heparin Sodium (Porcine) (Heparin -) 1,000 unit IVPUSH PRN PRN PRN Reason: Heparin Heparin Sodium (Porcine) (Heparin -) 5,000 unit IVPUSH PRN PRN PRN Reason: Heparin Last Admin: 09/11/19 06:13 Dose: 5,000 unit HEPARIN SOD,PORK IN 0.45% NACL (Heparin-1/2ns 25,000 Units/500) 25,000 units in 500 mls @ 20 mls/hr IVPB TITR [facility]; Protocol Last Titration: 09/11/19 06:12 Dose: 1,150 units/hr, 23 mls/hr Losartan Potassium (Cozaar -) 50 mg PO DAILY [facility] Last Admin: 09/10/19 09:34 Dose: 50 mg - Objective Vital Signs: Vital Signs Temperature 98.3 F 09/11/19 06:00 Pulse Rate 85 09/11/19 06:00 Respiratory Rate 19 09/11/19 09:00 Blood Pressure 165/64 09/11/19 06:00 O2 Sat by Pulse Oximetry (%) 95 09/11/19 09:00 Constitutional: Yes: No Distress, Calm Eyes: Yes: Conjunctiva Clear Cardiovascular: Yes: Regular Rate and Rhythm Respiratory: Yes: CTA Bilaterally Gastrointestinal: Yes: Soft Edema: No Neurological: Yes: Alert, Oriented ...Motor Strength: WNL Labs: CBC, BMP 09/11/19 07:44 09/11/19 07:44 INR, PTT INR 1.15 (0.82-1.09) 09/08/19 13:05 - ....Imaging EKG: Image Reviewed Assessment/Plan Assessment/Plan EKG: sinus, first deg AVB, no ischemic changes echo 08/2019: tds, nl LV function, RV not well visualized tele: sinus CTA no large central PE chest pain, palps, dyspnea: - echo and nuclear stress test here are both unremarkable. - trop neg x 2, EKG no ischemic changes - unlikely ACS -D/c heparin Wenkebach: -Mostly during night hours,sleep due to increased vagal tone -No further work up needed at this time. HLD - cont statin HTN - cont current meds UTI - manage per primary cardiac viramontes stable for dc
[2019-09-11] MEDS: ASPIRIN 81 MG CHEWABLE TABLETS PO SCH (10:40)
[2019-09-11] MEDS: FUROSEMIDE 20 MG TABLET (FP) PO SCH (10:40)
[2019-09-11] MEDS: LOSARTAN POTASSIUM 50 MG TABLET (FP) PO SCH (10:40)
[2019-09-11 14:58] VITALS: BP 118/52; PULSE 72; TEMP 97.8
--- NOTE | 2019-09-11 14:58 | CON.PULM ---
Consult Consult Specialty:: PULMONARY Referred by:: YAMIL Reason for Consultation:: SOB - History of Present Illness Chief Complaint: SOB History of Present Illness: 74F h/o HTN p/w palps, shortness of breath, chest pain. Came to visit from [facility] about 10 days ago, dealing with a lot of family stress. has had pain in her chest intermittently and racing heart since then, BP was also high but don' t remember how high it was so came to ER. Currently no chest pain, palps, dizziness, dyspnea, feeling better. No prior cardiac history, not sure if she had testing before. 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 No: AFIB Pulmonary: No: Asthma, COPD Gastrointestinal: No: Ascites Hepatobiliary: No: Cirrhosis Reproductive: Yes: Postmenopausal ...: No - Alcohol/Substance Use Hx Alcohol Use: No - Smoking History Smoking history: Former smoker Have you smoked in the past 12 months: No Aproximately how many cigarettes per day: 20 If you are a former smoker, when did you quit?: 200+ - Social History History of Recent Travel: Yes (8 days ago from [facility]) Home Medications - Allergies Allergies/Adverse Reactions: Allergies Allergy/AdvReac Type Severity Reaction Status Date / Time No Known Allergies Allergy Verified 09/08/19 12:50 - Home Medications Home Medications: Ambulatory Orders Furosemide [Lasix] 40 mg PO DAILY 09/08/19 Irbesartan/Hydrochlorothiazide [Avalide 150-12.5 mg Tablet] 150 mg PO DAILY Aspirin [ASA -] 81 mg PO DAILY #0 tab.chew 09/10/19 Atorvastatin Ca [Lipitor] 40 mg PO HS #90 tablet 09/10/19 Family Medical History Family History: Unremarkable Review of Systems - Review of Systems Constitutional: denies: Fever Eyes: denies: Blurred Vision HENT: denies: Difficult Swallowing Neck: denies: Decreased ROM Cardiovascular: denies: Chest Pain Respiratory: denies: Cough Gastrointestinal: denies: Abdominal Pain Genitourinary: denies: Burning Physical Exam Vital Sings: Vital Signs Temperature 97.8 F 09/11/19 14:21 Pulse Rate 72 09/11/19 14:21 Respiratory Rate 16 09/11/19 14:21 Blood Pressure 118/52 L 09/11/19 14:21 O2 Sat by Pulse Oximetry (%) 94 L 09/11/19 14:21 Constitutional: Yes: Calm Eyes: Yes: EOM Intact HENT: Yes: Normocephalic Neck: Yes: Trachea Midline Cardiovascular: Yes: Regular Rate and Rhythm Respiratory: Yes: CTA Bilaterally Gastrointestinal: Yes: Normal Bowel Sounds Edema: No Neurological: Yes: Alert ...Motor Strength: WNL Psychiatric: Yes: WNL Labs: CBC, BMP 09/11/19 07:44 09/11/19 07:44 REST REVIEWED Imaging - Results Chest X-ray: Report Reviewed, Image Reviewed Cat Scan: Report Reviewed, Image Reviewed Problem List - Problems (1) Chest pain Code(s): R07.9 - CHEST PAIN, UNSPECIFIED Qualifiers: Chest pain type: unspecified Qualified Code(s): R07.9 - Chest pain, unspecified (2) Elevated d-dimer Code(s): R79.89 - OTHER SPECIFIED ABNORMAL FINDINGS OF BLOOD CHEMISTRY (3) HTN (hypertension) Code(s): I10 - ESSENTIAL (PRIMARY) HYPERTENSION (4) Hypercholesteremia Code(s): E78.00 - PURE HYPERCHOLESTEROLEMIA, UNSPECIFIED Assessment/Plan CLEARED FROM PULMONARY STANDPOINT FOR DISCHARGE NO SIGNS OR SYMPTOMS OF RESPIRATORY DISEASE AT THIS TIME Charles MIKE MD
--- NOTE | 2019-09-11 16:35 | DS ---
Physical Exam: SUBJECTIVE: Patient seen and examined OBJECTIVE: Vital Signs Period Temp Pulse Resp BP Sys/Neff Pulse Ox Last 24 Hr 97.8 F-98.9 F 72-85 16-19 118-165/52-64 93-95 PHYSICAL EXAM GENERAL: The patient is awake, alert, and fully oriented, in no acute distress. HEAD: Normal with no signs of trauma. EYES: PERRL, extraocular movements intact, sclera anicteric, conjunctiva clear. ENT: Ears normal, nares patent, oropharynx clear without exudates, moist mucous membranes. NECK: Trachea midline, full range of motion, supple. LUNGS: Breath sounds equal, clear to auscultation bilaterally, no wheezes, no crackles, no accessory muscle use. HEART: Regular rate and rhythm, S1, S2 without murmur, rub or gallop. ABDOMEN: Soft, nontender, nondistended, normoactive bowel sounds, no guarding, no rebound, no hepatosplenomegaly, no masses. EXTREMITIES: 2+ pulses, warm, well-perfused, no edema. NEUROLOGICAL: Cranial nerves II through XII grossly intact. Normal speech, gait not observed. PSYCH: Normal mood, normal affect. SKIN: Warm, dry, normal turgor, no rashes or lesions noted. LABS Laboratory Results - last 24 hr 09/10/19 09/11/19 09/11/19 16:25 04:45 07:44 WBC 5.3 RBC 3.52 L Hgb 10.7 Hct 32.4 MCV 92.1 MCH 30.3 MCHC 32.9 RDW 12.7 Plt Count 168 MPV 10.7 Absolute Neuts (auto) 2.1 Neutrophils % 39.9 L Lymphocytes % 49.5 H Monocytes % 6.2 Eosinophils % 3.9 Basophils % 0.5 PTT (Actin FS) 36.9 H D-Dimer 3572 H Sodium Potassium Chloride Carbon Dioxide Anion Gap BUN Creatinine Est GFR (CKD-EPI)AfAm Est GFR (CKD-EPI)NonAf Random Glucose Calcium Total Bilirubin AST ALT Alkaline Phosphatase Total Protein Albumin 09/11/19 09/11/19 09/11/19 07:44 09:20 12:00 WBC RBC Hgb Hct MCV MCH MCHC RDW Plt Count MPV Absolute Neuts (auto) Neutrophils % Lymphocytes % Monocytes % Eosinophils % Basophils % PTT (Actin FS) 86.9 H D-Dimer 2993 H Sodium 140 Potassium 3.9 Chloride 102 Carbon Dioxide 29 Anion Gap 9 BUN 17.0 Creatinine 0.9 Est GFR (CKD-EPI)AfAm 71.98 Est GFR (CKD-EPI)NonAf 62.11 Random Glucose 146 H Calcium 8.8 Total Bilirubin 0.5 AST 17 ALT 10 L Alkaline Phosphatase 57 D Total Protein 6.7 Albumin 3.2 L Chest X-ray: Ni acute chest pathology, CM Cat Scan: No central PE Microbiology 09/08/19 15:00 Urine Culture - Final Urine - Urine Clean Catch NO GROWTH OBTAINED HOSPITAL COURSE: Date of Admission:09/08/19 Date of Discharge: 09/11/19 This is a 74 yr old female from [facility] who came 8 days ago,with hx of HTN,HDL , with cp and palpitations. Pt was seen at the urgent care and sent to ER for evaluation. *Chest pain/ palpitations - resolved - Trop neg x2 - EKG: SR with first degree AVB,no ischemic changes -Echo 08/2019: tds, nl LV function, RV not well visualized - on tele no arrhythmias,mg/K - WNL - Nuclear stress test : No evidence of ischemia -will cont on ASA - cardiology cleared for discharge. * Abnormal D- Dimer : Initially, pt was started on Heparin drip,now off. - CTA - no PE - US - DVT ruled out - seen by hematology, D- dimer is a non-specific finding would repeat. if remains elev or if any other concerning signs of PE would repeat cta in this pt who recently took long flight - pul consulted, no signs of respiratory distress and cleared for discharge *Abnormal UA - Initialy, pt was started on Ceftriaxone,Urine culture no growth, abx discontinued, remains asymptomatic. *HTN - BP stable -will cont on Losartan, Lasix * HDL - will cont on statin *Hypomagnesemia- resolved - Mg 1.5>1.8 - s/p replacement * VTE: on Heparin * F/E/N: Low Sodium diet Minutes to complete discharge: 35 Discharge Summary Problems reviewed: Yes Reason For Visit: PALPITATION,CHEST PAIN, URINARY TRACT INFECTION Current Active Problems Chest pain (Acute) Elevated d-dimer (Acute) HTN (hypertension) (Acute) Hypercholesteremia (Acute) Hypomagnesemia (Acute) Palpitations (Acute) UTI (urinary tract infection) (Acute) Condition: Stable - Instructions Diet, Activity, Other Instructions: Mrs Jaren Jacinto Your cardiac workup is negative. We found that your hmg a1c is 7.3. This means you are a pre-diabetic. Please see your doctor for follow up. new medications: Lipitor 40mg once per day for cholesterol management Disposition: HOME - Home Medications Comprehensive Discharge Medication List: Ambulatory Orders Furosemide [Lasix] 40 mg PO DAILY 09/08/19 Irbesartan/Hydrochlorothiazide [Avalide 150-12.5 mg Tablet] 150 mg PO DAILY Atorvastatin Ca [Lipitor] 40 mg PO HS #90 tablet 09/10/19 This patient is new to me today: Yes Date on this admission: 09/12/19 Emergency Visit: Yes ED Registration Date: 09/08/19 Care time: The patient presented to the Emergency Department on the above date and was hospitalized for further evaluation of their emergent condition. Critical Care patient: No - Discharge Referral Referred to [facility] Med [facility] No
== END 2019-09-11 17:35 | disposition home or self-care (01) ==
LOC: FER 12:46 → INTOOBSV 17:26 → FM/S 17:26 → UNDOADMOB 17:26 → FM/S 18:06
PROVIDERS: ADMIT Internal Medicine; ATTEND Nurse Practitioner Family
PROC: 3E03329 Introduction of Other Anti-infective into Peripheral Vein, Percutaneous Approach (ICD-10-PCS; principal; 2019-09-08)
PROC: 3E033GC Introduction of Other Therapeutic Substance into Peripheral Vein, Percutaneous Approach (ICD-10-PCS; 2019-09-08)
PROC: 3E013GC Introduction of Other Therapeutic Substance into Subcutaneous Tissue, Percutaneous Approach (ICD-10-PCS; 2019-09-08)
DX: R07.89 Other chest pain (principal); R00.2 Palpitations; R06.00 Dyspnea, unspecified; N39.0 Urinary tract infection, site not specified; I10 Essential (primary) hypertension; I44.0 Atrioventricular block, first degree; E83.42 Hypomagnesemia; E78.00 Pure hypercholesterolemia, unspecified; R79.89 Other specified abnormal findings of blood chemistry; Z87.891 Personal history of nicotine dependence; M19.90 Unspecified osteoarthritis, unspecified site
CPT/HCPCS: 36415; 71046-TC-FY; 71275-TC; 78452-TC; 80048; 80053; 80061; 81003; 81015; 82550; 83036; 83615; 83721; 83735; 83880; 84443; 84484; 85025; 85379; 85610; 85730; 87086; 93005; 93017; 93306-TC; 93970-TC; 99285-25; A9502; G0378; J1644; J2785; Q9967